=== PATIENT | female | born 1935 | race Caucasian/White ===

== ENCOUNTER 2021-08-14 10:42 | Inpatient (IN) | payer MEDICARE, OTHER ==
[2021-08-14] MEDS: Acetaminophen 650 MG Tab.ER *PTOM PO SCH ×3 (12:28→20:01)
[2021-08-14] MEDS: Gabapentin 100 MG Cap *PTOM PO SCH ×2 (12:30→20:02)
[2021-08-14] MEDS ORDERED: DICLOFENAC SODIUM 1% TOP PRN (15:00)
[2021-08-14] MEDS ORDERED: NYSTATIN TOP PRN (15:00)
[2021-08-14] MEDS ORDERED: Morphine 10 MG/0.5 ML Oral Syringe PO PRN (15:00)
[2021-08-14] MEDS ORDERED: LORazepam 0.5 MG Tab PO PRN (15:00)
[2021-08-14] MEDS: CAPSAICIN 0.025% TOP PRN (17:09)
[2021-08-14] MEDS: Apixaban 5 MG Tab *PTOM PO SCH (20:00)
[2021-08-14] MEDS: Metoprolol Tartrate 25 MG Tab *PTOM PO SCH (20:01)
[2021-08-14] MEDS: ROPINIROLE 0.25 MG PO SCH (20:02)
[2021-08-14] MEDS: ACYCLOVIR 400 MG PO SCH (20:05)
[2021-08-15] MEDS: Levothyroxine 125 MCG Tab *PTOM PO SCH (05:05)
[2021-08-15] MEDS ORDERED: Hyoscyamine 0.125 MG Tab.SL PO SCH (09:00)
[2021-08-15] MEDS: CAPSAICIN 0.025% TOP PRN ×2 (09:29→20:13)
[2021-08-15] MEDS: ACYCLOVIR 400 MG PO SCH ×2 (09:31→20:07)
[2021-08-15] MEDS: Dexamethasone 4 MG Tab *PTOM PO SCH (09:31)
[2021-08-15] MEDS: TORSEMIDE 10 MG PO SCH (09:32)
[2021-08-15] MEDS: HYOSCYAMINE 0.125 MG PO PRN (09:35)
[2021-08-15] MEDS: Acetaminophen 650 MG Tab.ER *PTOM PO SCH ×3 (09:40→20:04)
[2021-08-15] MEDS: Gabapentin 100 MG Cap *PTOM PO SCH ×2 (09:44→20:03)
[2021-08-15] MEDS: Apixaban 5 MG Tab *PTOM PO SCH ×2 (09:44→20:02)
[2021-08-15] MEDS: POTASSIUM CHLORIDE 20 MEQ PO SCH (09:45)
[2021-08-15] MEDS: Metoprolol Tartrate 25 MG Tab *PTOM PO SCH ×2 (10:01→20:07)
[2021-08-15] MEDS: ROPINIROLE 0.25 MG PO SCH (20:04)
[2021-08-16] MEDS: Levothyroxine 125 MCG Tab *PTOM PO SCH (06:04)
[2021-08-16] MEDS: Dexamethasone 4 MG Tab *PTOM PO SCH (09:36)
[2021-08-16] MEDS: Apixaban 5 MG Tab *PTOM PO SCH ×2 (09:37→22:04)
[2021-08-16] MEDS: POTASSIUM CHLORIDE 20 MEQ PO SCH (09:37)
[2021-08-16] MEDS: Metoprolol Tartrate 25 MG Tab *PTOM PO SCH ×2 (09:39→22:07)
[2021-08-16] MEDS: Gabapentin 100 MG Cap *PTOM PO SCH ×2 (09:47→22:05)
[2021-08-16] MEDS: TORSEMIDE 10 MG PO SCH (09:47)
[2021-08-16] MEDS: Acetaminophen 650 MG Tab.ER *PTOM PO SCH ×3 (09:48→22:09)
[2021-08-16] MEDS: ACYCLOVIR 400 MG PO SCH ×2 (09:49→22:08)
[2021-08-16] MEDS: ROPINIROLE 0.25 MG PO SCH (22:05)
[2021-08-16] MEDS: CAPSAICIN 0.025% TOP PRN (22:10)
[2021-08-17] MEDS: Levothyroxine 125 MCG Tab *PTOM PO SCH (05:08)
[2021-08-17] MEDS: ACYCLOVIR 400 MG PO SCH ×2 (09:32→21:51)
[2021-08-17] MEDS: Metoprolol Tartrate 25 MG Tab *PTOM PO SCH ×2 (09:33→21:47)
[2021-08-17] MEDS: Gabapentin 100 MG Cap *PTOM PO SCH ×2 (09:33→21:48)
[2021-08-17] MEDS: Dexamethasone 4 MG Tab *PTOM PO SCH (09:35)
[2021-08-17] MEDS: Apixaban 5 MG Tab *PTOM PO SCH ×2 (09:35→21:47)
[2021-08-17] MEDS: TORSEMIDE 10 MG PO SCH (09:36)
[2021-08-17] MEDS: POTASSIUM CHLORIDE 20 MEQ PO SCH (09:37)
[2021-08-17] MEDS: Acetaminophen 650 MG Tab.ER *PTOM PO SCH ×3 (09:38→21:50)
[2021-08-17] MEDS: ROPINIROLE 0.25 MG PO SCH (21:48)
[2021-08-17] MEDS: CAPSAICIN 0.025% TOP PRN (21:52)
[2021-08-18] MEDS: Levothyroxine 125 MCG Tab *PTOM PO SCH (05:09)
[2021-08-18] MEDS: Metoprolol Tartrate 25 MG Tab *PTOM PO SCH ×2 (08:00→20:12)
[2021-08-18] MEDS: POTASSIUM CHLORIDE 20 MEQ PO SCH (08:02)
[2021-08-18] MEDS: Dexamethasone 4 MG Tab *PTOM PO SCH (08:03)
[2021-08-18] MEDS: Apixaban 5 MG Tab *PTOM PO SCH ×2 (08:03→20:10)
[2021-08-18] MEDS: Gabapentin 100 MG Cap *PTOM PO SCH ×2 (08:04→20:16)
[2021-08-18] MEDS: TORSEMIDE 10 MG PO SCH (08:04)
[2021-08-18] MEDS: ACYCLOVIR 400 MG PO SCH ×2 (08:05→20:23)
[2021-08-18] MEDS: HYOSCYAMINE 0.125 MG PO PRN (08:05)
[2021-08-18] MEDS: Acetaminophen 650 MG Tab.ER *PTOM PO SCH ×3 (08:06→20:22)
[2021-08-18] MEDS: ROPINIROLE 0.25 MG PO SCH (20:17)
[2021-08-19] MEDS: Levothyroxine 125 MCG Tab *PTOM PO SCH (05:12)
[2021-08-19] MEDS: Dexamethasone 4 MG Tab *PTOM PO SCH (08:31)
[2021-08-19] MEDS: Apixaban 5 MG Tab *PTOM PO SCH (08:31)
[2021-08-19] MEDS: ACYCLOVIR 400 MG PO SCH (08:31)
[2021-08-19] MEDS: Metoprolol Tartrate 25 MG Tab *PTOM PO SCH (08:32)
[2021-08-19] MEDS: POTASSIUM CHLORIDE 20 MEQ PO SCH (08:32)
[2021-08-19] MEDS: Acetaminophen 650 MG Tab.ER *PTOM PO SCH ×2 (08:33→14:08)
[2021-08-19] MEDS: Gabapentin 100 MG Cap *PTOM PO SCH (08:33)
[2021-08-19] MEDS: TORSEMIDE 10 MG PO SCH (08:34)
== END 2021-08-19 17:05 | disposition hospice, home (50) | DRG 951 ==
LOC: FB.MS 11:20 → UNDOADMIN 11:20
PROVIDERS: ADMIT Family Medicine; ATTEND Family Medicine
DX: Z51.5 Encounter for palliative care (principal); C90.00 Multiple myeloma not having achieved remission; C79.31 Secondary malignant neoplasm of brain; C79.51 Secondary malignant neoplasm of bone; I48.20 Chronic atrial fibrillation, unspecified; I13.0 Hypertensive heart and chronic kidney disease with heart failure and stage 1 through stage 4 chronic kidney disease, or unspecified chronic kidney disease; I50.32 Chronic diastolic (congestive) heart failure; E87.1 Hypo-osmolality and hyponatremia; Z75.5 Holiday relief care; Z66 Do not resuscitate; E11.42 Type 2 diabetes mellitus with diabetic polyneuropathy; I50.810 Right heart failure, unspecified; N18.30 Chronic kidney disease, stage 3 unspecified; D63.1 Anemia in chronic kidney disease; I27.20 Pulmonary hypertension, unspecified; D69.6 Thrombocytopenia, unspecified; G25.81 Restless legs syndrome; G47.33 Obstructive sleep apnea (adult) (pediatric); N39.41 Urge incontinence; E87.8 Other disorders of electrolyte and fluid balance, not elsewhere classified; E66.9 Obesity, unspecified; R53.1 Weakness; I25.2 Old myocardial infarction; R53.83 Other fatigue; Z79.1 Long term (current) use of non-steroidal anti-inflammatories (NSAID); Z79.52 Long term (current) use of systemic steroids; Z79.01 Long term (current) use of anticoagulants; Z92.3 Personal history of irradiation; Z88.1 Allergy status to other antibiotic agents; Z88.8 Allergy status to other drugs, medicaments and biological substances; E03.9 Hypothyroidism, unspecified; Z79.890 Hormone replacement therapy; F41.9 Anxiety disorder, unspecified
CPT/HCPCS: A9270-GY; J8540; Q5005

== ENCOUNTER 2021-09-14 10:50 | Inpatient (IN) | payer OTHER ==
[~2021-09-14 10:50] MED LIST: CAPSAICIN 0.025% TOP PRN; DICLOFENAC SODIUM 1% TOP PRN; Hyoscyamine 0.125 MG Tab.SL SL PRN; Morphine 10 MG/0.5 ML Oral Syringe SL PRN; NYSTATIN TOP PRN
[2021-09-14] MEDS: Acetaminophen 650 MG Tab.ER *PTOM PO SCH ×2 (13:02→22:25)
[2021-09-14] MEDS: Gabapentin 100 MG Cap *PTOM PO SCH ×2 (13:02→22:15)
[2021-09-14] MEDS: Metoprolol Tartrate 25 MG Tab *PTOM PO SCH (22:14)
[2021-09-14] MEDS: ROPINIROLE 0.25 MG PO SCH (22:15)
[2021-09-14] MEDS: Docusate Sodium/Sennosides 50-8.6 MG Tab *PTOM PO SCH (22:17)
[2021-09-14] MEDS: ACYCLOVIR 400 MG PO SCH (22:21)
[2021-09-14] MEDS: Simvastatin 10 MG Tab *PTOM PO SCH (22:21)
[2021-09-15] MEDS: Levothyroxine 125 MCG Tab *PTOM PO SCH (05:45)
[2021-09-15] MEDS: TORSEMIDE 10 MG PO SCH (08:14)
[2021-09-15] MEDS: Potassium Chloride 20 MEQ Tab.ER *PTOM PO SCH (08:15)
[2021-09-15] MEDS: Dexamethasone 4 MG Tab *PTOM PO SCH (08:16)
[2021-09-15] MEDS: Gabapentin 100 MG Cap *PTOM PO SCH ×3 (08:16→20:47)
[2021-09-15] MEDS: Metoprolol Tartrate 25 MG Tab *PTOM PO SCH ×2 (08:16→20:48)
[2021-09-15] MEDS: Docusate Sodium/Sennosides 50-8.6 MG Tab *PTOM PO SCH ×2 (08:17→20:46)
[2021-09-15] MEDS: Acetaminophen 650 MG Tab.ER *PTOM PO SCH ×3 (08:18→20:45)
[2021-09-15] MEDS: ACYCLOVIR 400 MG PO SCH ×2 (08:18→20:44)
[2021-09-15] MEDS: Simvastatin 10 MG Tab *PTOM PO SCH (20:45)
[2021-09-15] MEDS: ROPINIROLE 0.25 MG PO SCH (20:47)
[2021-09-16] MEDS: Levothyroxine 125 MCG Tab *PTOM PO SCH (06:39)
[2021-09-16] MEDS: ACYCLOVIR 400 MG PO SCH ×2 (08:16→21:31)
[2021-09-16] MEDS: Gabapentin 100 MG Cap *PTOM PO SCH ×3 (08:17→21:22)
[2021-09-16] MEDS: Docusate Sodium/Sennosides 50-8.6 MG Tab *PTOM PO SCH ×2 (08:17→21:24)
[2021-09-16] MEDS: TORSEMIDE 10 MG PO SCH (08:17)
[2021-09-16] MEDS: Potassium Chloride 20 MEQ Tab.ER *PTOM PO SCH (08:18)
[2021-09-16] MEDS: Dexamethasone 4 MG Tab *PTOM PO SCH (08:18)
[2021-09-16] MEDS: Metoprolol Tartrate 25 MG Tab *PTOM PO SCH ×2 (08:27→21:22)
[2021-09-16] MEDS: Acetaminophen 650 MG Tab.ER *PTOM PO SCH ×3 (08:33→21:30)
[2021-09-16] MEDS: Morphine 10 MG/0.5 ML Oral Syringe SL PRN (14:57)
[2021-09-16] MEDS: Nitrofurantoin Monohydrate/Macrocrystalline 100 MG Cap PO SCH (21:21)
[2021-09-16] MEDS: ROPINIROLE 0.25 MG PO SCH (21:23)
[2021-09-16] MEDS: Simvastatin 10 MG Tab *PTOM PO SCH (21:30)
[2021-09-17] MEDS: Levothyroxine 125 MCG Tab *PTOM PO SCH (06:45)
[2021-09-17] MEDS: ACYCLOVIR 400 MG PO SCH ×2 (08:06→20:03)
[2021-09-17] MEDS: Docusate Sodium/Sennosides 50-8.6 MG Tab *PTOM PO SCH ×2 (08:07→20:03)
[2021-09-17] MEDS: Metoprolol Tartrate 25 MG Tab *PTOM PO SCH ×2 (08:07→20:06)
[2021-09-17] MEDS: Nitrofurantoin Monohydrate/Macrocrystalline 100 MG Cap PO SCH ×2 (08:07→20:11)
[2021-09-17] MEDS: Dexamethasone 4 MG Tab *PTOM PO SCH (08:07)
[2021-09-17] MEDS: Potassium Chloride 20 MEQ Tab.ER *PTOM PO SCH (08:07)
[2021-09-17] MEDS: Gabapentin 100 MG Cap *PTOM PO SCH ×3 (08:08→20:04)
[2021-09-17] MEDS: TORSEMIDE 10 MG PO SCH (08:08)
[2021-09-17] MEDS: Acetaminophen 650 MG Tab.ER *PTOM PO SCH ×3 (08:08→20:04)
[2021-09-17] MEDS: Simvastatin 10 MG Tab *PTOM PO SCH (20:03)
[2021-09-17] MEDS: ROPINIROLE 0.25 MG PO SCH (20:06)
[2021-09-18] MEDS: Levothyroxine 125 MCG Tab *PTOM PO SCH (05:12)
[2021-09-18] MEDS: Docusate Sodium/Sennosides 50-8.6 MG Tab *PTOM PO SCH ×2 (08:37→21:41)
[2021-09-18] MEDS: TORSEMIDE 10 MG PO SCH (08:38)
[2021-09-18] MEDS: Gabapentin 100 MG Cap *PTOM PO SCH ×3 (08:38→21:40)
[2021-09-18] MEDS: Potassium Chloride 20 MEQ Tab.ER *PTOM PO SCH (08:39)
[2021-09-18] MEDS: ACYCLOVIR 400 MG PO SCH ×2 (08:39→21:42)
[2021-09-18] MEDS: Metoprolol Tartrate 25 MG Tab *PTOM PO SCH ×2 (08:40→21:38)
[2021-09-18] MEDS: Nitrofurantoin Monohydrate/Macrocrystalline 100 MG Cap PO SCH ×2 (08:40→21:45)
[2021-09-18] MEDS: Dexamethasone 4 MG Tab *PTOM PO SCH (08:40)
[2021-09-18] MEDS: Acetaminophen 650 MG Tab.ER *PTOM PO SCH ×3 (08:41→21:41)
[2021-09-18] MEDS: LORazepam 0.5 MG Tab PO PRN (12:30)
[2021-09-18] MEDS: Morphine 10 MG/0.5 ML Oral Syringe SL PRN (13:36)
[2021-09-18] MEDS: ROPINIROLE 0.25 MG PO SCH (21:40)
[2021-09-18] MEDS: Simvastatin 10 MG Tab *PTOM PO SCH (21:42)
[2021-09-19] MEDS: Levothyroxine 125 MCG Tab *PTOM PO SCH (06:30)
[2021-09-19] MEDS: Dexamethasone 4 MG Tab *PTOM PO SCH (08:49)
[2021-09-19] MEDS: Gabapentin 100 MG Cap *PTOM PO SCH ×2 (08:49→13:33)
[2021-09-19] MEDS: Potassium Chloride 20 MEQ Tab.ER *PTOM PO SCH (08:50)
[2021-09-19] MEDS: TORSEMIDE 10 MG PO SCH (08:50)
[2021-09-19] MEDS: Docusate Sodium/Sennosides 50-8.6 MG Tab *PTOM PO SCH (08:53)
[2021-09-19] MEDS: Acetaminophen 650 MG Tab.ER *PTOM PO SCH ×2 (08:54→11:45)
[2021-09-19] MEDS: ACYCLOVIR 400 MG PO SCH (08:56)
[2021-09-19] MEDS: Metoprolol Tartrate 25 MG Tab *PTOM PO SCH (08:57)
[2021-09-19] MEDS: Nitrofurantoin Monohydrate/Macrocrystalline 100 MG Cap PO SCH (11:43)
[2021-09-19] MEDS: Morphine 10 MG/0.5 ML Oral Syringe SL PRN ×2 (12:40→14:10)
[2021-09-19] MEDS: LORazepam 0.5 MG Tab PO PRN (14:09)
== END 2021-09-19 16:00 | disposition home or self-care (01) | DRG 951 ==
LOC: FB.MS 10:50 → UNDOADMIN 11:03 → FB.MS 11:03
PROVIDERS: ADMIT Family Medicine; ATTEND Family Medicine
DX: Z51.5 Encounter for palliative care (principal); C90.00 Multiple myeloma not having achieved remission; Z75.5 Holiday relief care
CPT/HCPCS: A9270-GY; J8540; Q5005

== ENCOUNTER 2021-10-03 10:40 | Inpatient (IN) | payer OTHER ==
[2021-10-03] MEDS ORDERED: CAPSAICIN 0.025% TOP PRN (10:44)
[2021-10-03] MEDS ORDERED: DICLOFENAC SODIUM 1% TOP PRN ×2 (10:47→11:36)
[2021-10-03] MEDS ORDERED: NYSTATIN TOP PRN ×2 (10:55→11:36)
[2021-10-03] MEDS: Acetaminophen 650 MG Tab.ER *PTOM PO SCH ×2 (12:54→20:17)
[2021-10-03] MEDS: Gabapentin 100 MG Cap *PTOM PO SCH ×2 (13:09→20:16)
[2021-10-03] MEDS: Metoprolol Tartrate 25 MG Tab *PTOM PO SCH (20:15)
[2021-10-03] MEDS: ROPINIROLE 0.25 MG PO SCH (20:16)
[2021-10-03] MEDS: ACYCLOVIR 400 MG PO SCH (20:18)
[2021-10-04] MEDS: Levothyroxine 125 MCG Tab *PTOM PO SCH (06:29)
[2021-10-04] MEDS: Dexamethasone 4 MG Tab *PTOM PO SCH (08:36)
[2021-10-04] MEDS: Potassium Chloride 20 MEQ Tab.ER *PTOM PO SCH (08:37)
[2021-10-04] MEDS: Gabapentin 100 MG Cap *PTOM PO SCH ×3 (08:37→20:40)
[2021-10-04] MEDS: TORSEMIDE 10 MG PO SCH (08:38)
[2021-10-04] MEDS: Docusate Sodium/Sennosides 50-8.6 MG Tab *PTOM PO PRN (08:38)
[2021-10-04] MEDS: Metoprolol Tartrate 25 MG Tab *PTOM PO SCH ×2 (08:40→20:41)
[2021-10-04] MEDS: Acetaminophen 650 MG Tab.ER *PTOM PO SCH ×3 (08:42→20:38)
[2021-10-04] MEDS: ACYCLOVIR 400 MG PO SCH ×2 (08:43→20:40)
[2021-10-04] MEDS: Morphine 10 MG/0.5 ML Oral Syringe PO PRN (16:36)
[2021-10-04] MEDS: LORazepam 0.5 MG Tab PO PRN (16:38)
[2021-10-04] MEDS: ROPINIROLE 0.25 MG PO SCH (20:38)
[2021-10-05] MEDS: Levothyroxine 125 MCG Tab *PTOM PO SCH (06:28)
[2021-10-05] MEDS: Dexamethasone 4 MG Tab *PTOM PO SCH (09:27)
[2021-10-05] MEDS: Potassium Chloride 20 MEQ Tab.ER *PTOM PO SCH (09:27)
[2021-10-05] MEDS: Gabapentin 100 MG Cap *PTOM PO SCH ×3 (09:28→21:30)
[2021-10-05] MEDS: Metoprolol Tartrate 25 MG Tab *PTOM PO SCH ×2 (09:28→21:29)
[2021-10-05] MEDS: TORSEMIDE 10 MG PO SCH (09:29)
[2021-10-05] MEDS: ACYCLOVIR 400 MG PO SCH ×2 (09:30→21:33)
[2021-10-05] MEDS: Acetaminophen 650 MG Tab.ER *PTOM PO SCH ×3 (09:31→21:31)
[2021-10-05] MEDS: Docusate Sodium/Sennosides 50-8.6 MG Tab *PTOM PO PRN (09:32)
[2021-10-05] MEDS: Morphine 10 MG/0.5 ML Oral Syringe PO PRN (14:34)
[2021-10-05] MEDS: ROPINIROLE 0.25 MG PO SCH (21:30)
[2021-10-06] MEDS: Levothyroxine 125 MCG Tab *PTOM PO SCH (06:50)
[2021-10-06] MEDS: Potassium Chloride 20 MEQ Tab.ER *PTOM PO SCH (11:11)
[2021-10-06] MEDS: Metoprolol Tartrate 25 MG Tab *PTOM PO SCH ×2 (11:11→20:32)
[2021-10-06] MEDS: TORSEMIDE 10 MG PO SCH (11:12)
[2021-10-06] MEDS: Gabapentin 100 MG Cap *PTOM PO SCH ×3 (11:12→20:33)
[2021-10-06] MEDS: Acetaminophen 650 MG Tab.ER *PTOM PO SCH ×3 (11:13→20:51)
[2021-10-06] MEDS: Dexamethasone 4 MG Tab *PTOM PO SCH (11:13)
[2021-10-06] MEDS: ACYCLOVIR 400 MG PO SCH ×3 (11:14→20:52)
[2021-10-06] MEDS: NAPROXEN 220 MG PO SCH ×3 (11:14→20:34)
[2021-10-06] MEDS: Morphine 10 MG/0.5 ML Oral Syringe PO PRN ×5 (15:00→22:48)
[2021-10-06] MEDS: LORazepam 0.5 MG Tab PO PRN (18:27)
[2021-10-06] MEDS: ROPINIROLE 0.25 MG PO SCH (20:34)
[2021-10-07] MEDS: Morphine 10 MG/0.5 ML Oral Syringe PO PRN ×2 (04:17→09:06)
[2021-10-07] MEDS: Levothyroxine 125 MCG Tab *PTOM PO SCH (06:02)
[2021-10-07] MEDS: Hyoscyamine 0.125 MG Tab.SL PO PRN ×2 (06:50→09:05)
[2021-10-07] MEDS ORDERED: Morphine 10 MG/0.5 ML Oral Syringe SL SCH ×2 (09:00→13:00)
[2021-10-07] MEDS: LORazepam 0.5 MG Tab PO PRN (09:05)
[2021-10-07] MEDS: Acetaminophen 650 MG Tab.ER *PTOM PO SCH (09:15)
[2021-10-07] MEDS: ACYCLOVIR 400 MG PO SCH (09:15)
[2021-10-07] MEDS: NAPROXEN 220 MG PO SCH (09:15)
[2021-10-07] MEDS: Gabapentin 100 MG Cap *PTOM PO SCH (09:16)
[2021-10-07] MEDS: Dexamethasone 4 MG Tab *PTOM PO SCH (09:16)
[2021-10-07] MEDS: Metoprolol Tartrate 25 MG Tab *PTOM PO SCH (09:16)
[2021-10-07] MEDS: TORSEMIDE 10 MG PO SCH (09:16)
[2021-10-07] MEDS: Potassium Chloride 20 MEQ Tab.ER *PTOM PO SCH (09:16)
[2021-10-07] MEDS ORDERED: Morphine 10 MG/0.5 ML Oral Syringe SL PRN (09:48)
[2021-10-07] MEDS ORDERED: LORazepam Conc Solution 2 MG/ML 30 ML Bottle SL PRN (09:51)
[2021-10-07] MEDS ORDERED: Hyoscyamine 0.125 MG Tab.SL PO ONE (10:00)
[2021-10-07] MEDS ORDERED: Hyoscyamine 0.125 MG Tab.SL PO SCH (13:00)
[2021-10-07] MEDS ORDERED: LORazepam Conc Solution 2 MG/ML 30 ML Bottle SL SCH (13:00)
== END 2021-10-07 11:55 | disposition expired | DRG 951 ==
LOC: FB.MS 10:40
PROVIDERS: ADMIT Family Medicine; ATTEND Family Medicine
DX: Z51.5 Encounter for palliative care (principal); C90.00 Multiple myeloma not having achieved remission; C79.51 Secondary malignant neoplasm of bone; C79.31 Secondary malignant neoplasm of brain; Z75.5 Holiday relief care; Z66 Do not resuscitate; S91.104A Unspecified open wound of right lesser toe(s) without damage to nail, initial encounter; S01.301A Unspecified open wound of right ear, initial encounter; Z79.890 Hormone replacement therapy; Z79.899 Other long term (current) drug therapy
CPT/HCPCS: A9270-GY; J8540; Q5005